=== PATIENT | male | born 1985 | race African-American/Black ===

== ENCOUNTER 2023-11-10 21:46 | Emergency (ER) | payer OTHER ==
[2023-11-10 22:42] LABS: Bacteria/HPF None Seen HPF (None Seen); Bilirubin Negative (Negative); Blood, Urine Negative (Negative); CAUTI Indications for Culture Pelvic or flank pain; Clarity Clear (Clear); Glucose, Urine (Dipstick) Normal (Negative); Ketone, Urine Negative (Negative); Leukocyte Negative Leu/uL (Negative); Nitrite Negative (Negative); Protein, Urine (Dipstick) Negative (Neg-Trace); RBC/HPF 0-3 HPF (0-3); Specific Gravity, Urine 1.011 (1.002-1.036); Squamous Epithelial None Seen HPF (0-3); Urobilinogen Normal mg/dL (Less than 2); WBC/HPF None Seen HPF (0-3)
[2023-11-10 22:44] LABS: Urine Culture Reflex No No
[2023-11-10] MEDS ORDERED: Ondansetron PF 4 MG/2 ML Vial ONE (22:47)
[2023-11-10 22:49] LABS: Amphetamine Not Detected (NotDetected); Barbiturates Screen Not Detected (NotDetected); Benzodiazepine Screen Not Detected (NotDetected); Cocaine Metabolite Screen Not Detected (NotDetected); Methadone Not Detected (NotDetected); Methamphetamine Not Detected (NotDetected); Opiate Screen Not Detected (NotDetected); Oxycodone Screen Not Detected (NotDetected); Phencyclidine (PCP) Not Detected (NotDetected); THC/Cannabinoid Screen Not Detected (NotDetected); Tricyclic Screen Not Detected (NotDetected)
[2023-11-10 23:30] LABS: #Monocytes 0.8 thou/uL (0.11-0.59); %Basophils 0.2 % (0.0-1.0); %Eosinophils 0.2 % (0.0-10.0); %Lymphocytes 27.2 % (21.0-51.0); %Monocytes 12.5 % (0.0-10.0); %Neutrophils 59.7 % (42.0-75.0); Hematocrit 43.5 % (42.0-52.0); Hemoglobin 14.2 g/dL (14.0-18.0); Mean Corpuscular HGB CONC 32.6 g/dL (32.0-36.0); Mean Corpuscular Hemoglobin 26.3 pg (27.0-31.0); Mean Corpuscular Volume 80.6 fl (78.0-98.0); Mean Platelet Volume 11.5 fL (7.4-10.4); Platelet Count 198 10x3/uL (130-400); RBC Distribution Width 13.5 % (11.5-14.5); White Blood Cell (WBC) Count 6.7 10x3/uL (4.8-10.8)
[2023-11-11 00:01] LABS: ALT (SGPT) 68 U/L (8-55); AST (SGOT) 33 U/L (5-34); Albumin 4.4 g/dL (3.5-5.0); Alkaline Phosphatase 57 U/L (40-110); Anion Gap 15 mmol/L (10-20); BUN (Urea Nitrogen) 11 mg/dL (8.9-20.6); Bilirubin, Total 0.5 mg/dL (0.2-1.2); Calc. Creatinine Clearance 0 mL/min (70-130); Calcium 9.2 mg/dL (7.8-10.44); Carbon Dioxide 27 mmol/L (22-29); Chloride 99 mmol/L (98-107); Estimated GFR 112; Globulin 3.3 g/dL (2.4-3.5); Glucose 113 mg/dL (70-105); Lipase 15 U/L (8-78); Potassium 3.6 mmol/L (3.5-5.1); Protein, Total 7.7 g/dL (6.0-8.3); Sodium 137 mmol/L (136-145)
[2023-11-11 00:04] LABS: Troponin I Less than 0.010 ng/mL (< 0.028)
[2023-11-11] MEDS ORDERED: levETIRAcetam 500 MG (5 mL) VIAL ONE (00:21)
[2023-11-11] MEDS ORDERED: Acetaminophen 500 MG TAB ONE (00:21)
== END 2023-11-11 01:15 ==
LOC: ERS 21:46
DX: G40.909 Epilepsy, unspecified, not intractable, without status epilepticus (principal); I10 Essential (primary) hypertension; F17.210 Nicotine dependence, cigarettes, uncomplicated; Z79.899 Other long term (current) drug therapy
CPT/HCPCS: 36415; 70450; 71045; 80053; 80306; 81001; 83690; 84146; 84484; 85025; 93005; 96365; 96375; J1953; J2405

== ENCOUNTER 2024-06-27 00:11 | Emergency (ER) | payer OTHER ==
[2024-06-27] MEDS ORDERED: levETIRAcetam 500 MG (5 mL) VIAL ONE (00:39)
[2024-06-27] MEDS ORDERED: Ibuprofen 800 MG TAB ONE (02:38)
== END 2024-06-27 02:40 ==
LOC: EEVIPCON 00:11 → ERS 00:11
DX: R56.9 Unspecified convulsions (principal); I10 Essential (primary) hypertension; F17.210 Nicotine dependence, cigarettes, uncomplicated
CPT/HCPCS: 70450; 72125; 93005; 96374; J1953